=== PATIENT | male | born 1955 | race African-American/Black ===

== ENCOUNTER 2017-08-09 22:27 | Inpatient (IN) | payer OTHER ==
[~2017-08-09] VITALS: Ht 182.9 cm; Wt 82.7 kg
[~2017-08-09 22:27] MED LIST: ALEVE220 MG PO; ESSENTIAL DAIL1 EACH PO; GLUCOPHAGE1000 MG PO; GLUCOTROL5 MG PO; ISENTRESS400 MG PO; LO-DOSE ASPIRIN81 M2 PO; MOTRIN800 MG PO; NEURONTIN800 MG PO; NORVASC10 MG PO; PERCOCET 5/31 TABLET PO; PREZCOBIX 8001 EACH PO; VICTOZA 2-0.6 MG/0.1 SC; VITAMIN E1000 UNIT PO
[2017-08-10 06:04] VITALS: BP 124/76
[2017-08-10 11:36] VITALS: BP 107/71
[2017-08-10 15:37] VITALS: BP 121/67
[2017-08-10 17:48] LABS: HEMATOCRIT 40.4 % (38.0-50.0); MCV 92.7 FL (86-99)
[2017-08-10 19:58] VITALS: BP 127/71
[2017-08-11 00:15] VITALS: BP 121/73
[2017-08-11 04:30] VITALS: BP 127/75
[2017-08-11 06:44] LABS: CHLORIDE 104 MEQ/L (99-109); CREATININE 0.8 MG/DL (0.6-1.3); GFR ESTIMATE (CALCULATED) > 59 mL/min/ (58.99-99999); GLUCOSE 167 mg/dL (70-99); POTASSIUM 4.3 MEQ/L (3.7-5.4); SODIUM 139 MEQ/L (136-147); UREA NITROGEN (BUN) 11 mg/dL (9-23)
[2017-08-11 08:33] VITALS: BP 128/68
[2017-08-11 11:52] VITALS: BP 167/74
[2017-08-11 16:14] VITALS: BP 118/64
[2017-08-11 20:18] VITALS: BP 138/67
[2017-08-12] VITALS: BP 144/67
[2017-08-12 04:20] VITALS: BP 122/60
[2017-08-12 08:02] VITALS: BP 132/69
[2017-08-12 12:24] VITALS: BP 158/74
[2017-08-12] MEDS ORDERED: OXYCODONE HCL5 MG PO (16:19)
[2017-08-12] MEDS ORDERED: ELIQUIS2.5 MG PO (16:19)
== END 2017-08-12 17:40 | DRG 469 ==
LOC: ENRESERV 22:27 → 2SOUTH 08-10 05:21 → 3WEST 08-10 05:21 → 2SOUTH 08-10 08:44 → 3WEST 08-10 11:17 → 2SOUTH 08-10 13:14 → ENRESERV 08-12 09:50 → CANRESERV 08-12 11:19 → ENRESERV 08-12 11:19 → 3WEST 08-12 17:40
PROVIDERS: Orthopaedic Surgery
PROC: 0SRB04Z Replacement of Left Hip Joint with Ceramic on Polyethylene Synthetic Substitute, Open Approach (ICD-10-PCS; principal; 2017-08-10)
DX: M16.12 Unilateral primary osteoarthritis, left hip (principal); B20 Human immunodeficiency virus [HIV] disease; I10 Essential (primary) hypertension; E11.9 Type 2 diabetes mellitus without complications
CPT/HCPCS: 71045; 80048; 82948; 85014; 85018; 86850; 86900; 86901; J0131; J0690; J1100; J1815; J1885; J2250; J7050; J7120; S0020